=== PATIENT | female | born 1990 | race Caucasian/White ===

== ENCOUNTER 2017-07-07 18:03 | Emergency (ER) | payer OTHER ==
[~2017-07-07] VITALS: Ht 162.6 cm; Wt 62.0 kg
[2017-07-07 18:07] VITALS: BP 150/71; PULSE 63; RESP 18; TEMP 99; O2SAT 99
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
[2017-07-07] MEDS ORDERED: DICL75TA PO (20:29)
[2017-07-07] MEDS ORDERED: CYCL1TAB29 PO (20:29)
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
== END 2017-07-07 21:17 | disposition home or self-care (01) ==
LOC: NEPK 18:03
DX: S16.1XXA Strain of muscle, fascia and tendon at neck level, initial encounter (principal); V43.52XA Car driver injured in collision with other type car in traffic accident, initial encounter
CPT/HCPCS: 72040; 99284